=== PATIENT | male | born 1995 | race Caucasian/White ===

== ENCOUNTER 2019-04-09 19:01 | Emergency (ER) | payer MEDICAID, OTHER ==
[2019-04-09] MEDS ORDERED: LIDOCAINE 1% (MDV) 10 ML INJ INJ (20:37)
[2019-04-09] MEDS: DIPHTH/TET/ACEL PERTUSS (ADULT) 0.5 ML VIAL IM* (20:52)
[2019-04-09] MEDS: LIDOCAINE 1%/EPI (MDV) 50 ML INJ INJ (20:56)
[2019-04-09] MEDS: BACITRACIN 0.9 GM OINT TOP (22:39)
== END 2019-04-09 22:49 | disposition home or self-care (01) ==
LOC: FTE 19:01
DX: S51.811A Laceration without foreign body of right forearm, initial encounter (principal); W25.XXXA Contact with sharp glass, initial encounter; Y92.9 Unspecified place or not applicable; Z23 Encounter for immunization
CPT/HCPCS: 12002; 90471; 90715; 99283-25

== ENCOUNTER 2019-04-11 15:24 | Emergency (ER) | payer MEDICAID | END 2019-04-11 16:05 | disposition home or self-care (01) | LOC: E/R 15:24 | DX: Z48.01 Encounter for change or removal of surgical wound dressing (principal) | CPT/HCPCS: 99282; Z7502 ==